=== PATIENT | female | born 1970 | race Two or more races ===

== ENCOUNTER 2017-09-10 14:26 | Outpatient (CLI) | payer OTHER | END 2017-09-10 14:30 | disposition home or self-care (01) | LOC: RAD 501 14:26 | DX: M25.511 Pain in right shoulder (principal) ==

== ENCOUNTER 2023-01-22 06:54 | Day surgery (SDC) | payer OTHER ==
[~2023-01-22] VITALS: Ht 167.6 cm; Wt 59.0 kg
== END 2023-01-23 00:05 | disposition home or self-care (01) ==
LOC: CIR.AMB 06:54
PROVIDERS: ATTEND Surgery
DX: N60.82 Other benign mammary dysplasias of left breast (principal); N60.92 Unspecified benign mammary dysplasia of left breast; R92.1 Mammographic calcification found on diagnostic imaging of breast; D48.62 Neoplasm of uncertain behavior of left breast; Z20.822 Contact with and (suspected) exposure to COVID-19; Z88.0 Allergy status to penicillin
CPT/HCPCS: 19301; 19281; L8699